=== PATIENT | male | born 1935 | race African-American/Black ===

== ENCOUNTER 2018-05-29 14:06 | Inpatient (IN) | payer MEDICARE, BC ==
[~2018-05-29] VITALS: Ht 172.7 cm; Wt 62.3 kg
[2018-05-29] MEDS ORDERED: Sodium Chloride 500ML 500 ML IV ONE (14:18)
--- NOTE | 2018-05-29 14:41 | Emergency Room Report ---
History of Present Illness General Chief Complaint: Syncope Source: Patient Present Illness HPI Patient presents after a syncopal episode Reports that he was going to answer the door when he passed out this was observed by his and paramedics summoned Currently the patient denies any chest pain denies any focal weakness Denies any headache denies any neck pain or photophobia On further questioning patient reports recent hospitalization at [facility] Where he had previous abdominal surgery patient is a fairly poor historian cannot give me the reason for that surgery Denies any change in medications reports taking medication for blood pressure history Allergies: Coded Allergies: No Known Allergies (Unverified , 05/29/18) Patient History Limited by: medical condition - Poor historian Past Medical History: see triage record Pertinent Family History: none Reviewed Nursing Documentation: PMH: Agreed; PSxH: Agreed Nursing Documentation-PMH Hx Hypertension: Yes Hx Cancer: Yes Review of Systems All Other Systems: limited - Other than the ones mentioned in the history of present illness all others are reviewed however they do stay limited due to the patient's mental status Physical Exam Vital Signs Date Time Temp Pulse Resp B/P (MAP) Pulse Ox O2 Delivery O2 Flow Rate FiO2 05/29/18 13:54 98.1 88 18 97/64 98 Sp02 EP Interpretation: reviewed, normal General Appearance: no apparent distress Head: normocephalic, atraumatic Eyes: bilateral eye PERRL, bilateral eye EOMI ENT: hearing grossly normal Neck: full range of motion, supple Respiratory: lungs clear Cardiovascular #1: regular rate, rhythm Gastrointestinal: other - Healing mid abdominal surgical scar no pulsatile masses Genitourinary: no CVA tenderness Musculoskeletal: normal inspection - No obvious focal deficit swelling in the right lower extremity Neurologic: alert, responsive Skin: other - Swelling Lymphatic: no adenopathy Medical Decision Making Diagnostic Impression: Primary Impression: Syncope ER Course Patient is a fairly complex patient with multiple differential to consideration including but not limited to cardiac cardiopulmonary and vascular emergencies Patient's blood work reveals elevated kidney function EKG is sinus rhythm Patient remains hemodynamically stable The ultrasound of the right lower extremity shows some anomaly at the femoral region will require further investigation and patient admitted for further care Labs Test 05/29/18 14:45 05/29/18 16:11 05/30/18 04:53 White Blood Count 5.4 K/UL (4.8-10.8) 4.9 K/UL (4.8-10.8) Red Blood Count 3.68 M/UL (4.70-6.10) 3.48 M/UL (4.70-6.10) Hemoglobin 10.3 G/DL (14.2-18.0) 9.8 G/DL (14.2-18.0) Hematocrit 33.3 % (42.0-52.0) 30.9 % (42.0-52.0) Mean Corpuscular Volume 90 FL (80-99) 89 FL (80-99) Mean Corpuscular Hemoglobin 28.0 PG (27.0-31.0) 28.1 PG (27.0-31.0) Mean Corpuscular Hemoglobin Concent 30.9 G/DL (32.0-36.0) 31.7 G/DL (32.0-36.0) Red Cell Distribution Width 15.3 % (11.6-14.8) 15.1 % (11.6-14.8) Platelet Count 200 K/UL (150-450) 210 K/UL (150-450) Mean Platelet Volume 7.2 FL (6.5-10.1) 7.7 FL (6.5-10.1) Neutrophils (%) (Auto) 71.8 % (45.0-75.0) 70.9 % (45.0-75.0) Lymphocytes (%) (Auto) 12.5 % (20.0-45.0) 15.7 % (20.0-45.0) Monocytes (%) (Auto) 11.6 % (1.0-10.0) 8.9 % (1.0-10.0) Eosinophils (%) (Auto) 3.0 % (0.0-3.0) 3.3 % (0.0-3.0) Basophils (%) (Auto) 1.1 % (0.0-2.0) 1.2 % (0.0-2.0) Sodium Level 141 MMOL/L (136-145) 146 MMOL/L (136-145) Potassium Level 3.6 MMOL/L (3.5-5.1) 3.3 MMOL/L (3.5-5.1) Chloride Level 112 MMOL/L (98-107) 114 MMOL/L (98-107) Carbon Dioxide Level 20 MMOL/L (21-32) 23 MMOL/L (21-32) Anion Gap 9 mmol/L (5-15) 9 mmol/L (5-15) Blood Urea Nitrogen 53 mg/dL (7-18) 45 mg/dL (7-18) Creatinine 2.3 MG/DL (0.55-1.30) 2.0 MG/DL (0.55-1.30) Estimat Glomerular Filtration Rate mL/min (>60) mL/min (>60) Glucose Level 73 MG/DL (74-106) 81 MG/DL (74-106) Calcium Level 9.1 MG/DL (8.5-10.1) 8.8 MG/DL (8.5-10.1) Total Bilirubin 0.3 MG/DL (0.2-1.0) Aspartate Amino Transf (AST/SGOT) 13 U/L (15-37) Alanine Aminotransferase (ALT/SGPT) 11 U/L (12-78) Alkaline Phosphatase 46 U/L (46-116) Total Creatine Kinase 64 U/L (26-308) Creatine Kinase MB 1.3 NG/ML (0.0-3.6) Creatine Kinase MB Relative Index 2.0 Troponin I 0.012 ng/mL (0.000-0.056) 0.019 ng/mL (0.000-0.056) Total Protein 6.9 G/DL (6.4-8.2) Albumin 2.9 G/DL (3.4-5.0) Globulin 4.0 g/dL Albumin/Globulin Ratio 0.7 (1.0-2.7) Lipase 267 U/L (73-393) Urine Color Pale yellow Urine Appearance Clear Urine pH 5 (4.5-8.0) Urine Specific [place] 1.010 (1.005-1.035) Urine Protein 1+ (NEGATIVE) Urine Glucose (UA) Negative (NEGATIVE) Urine Ketones Negative (NEGATIVE) Urine Blood Negative (NEGATIVE) Urine Nitrite Negative (NEGATIVE) Urine Bilirubin Negative (NEGATIVE) Urine Urobilinogen Normal MG/DL (0.0-1.0) Urine Leukocyte Esterase 1+ (NEGATIVE) Urine RBC 0-2 /HPF (0 - 0) Urine WBC 2-4 /HPF (0 - 0) Urine Squamous Epithelial Cells None /LPF (NONE/OCC) Urine Bacteria Few /HPF (NONE) Thyroid Stimulating Hormone (TSH) 3.209 uiU/mL (0.358-3.740) EKG Diagnostic Results Rate: normal Rhythm: NSR ST Segments: other - Nonspecific ST T-wave changes Rhythm Strip Diag. Results EP Interpretation: yes Rate: 67 Rhythm: NSR, no PVC's, no ectopy Chest X-Ray Diagnostic Results Chest X-Ray Diagnostic Results : Chest X-Ray Ordered: Yes # of Views/Limited/Complete: 1 View Indication: Chest Pain EP Interpretation: Yes Interpretation: no consolidation, no effusion, no pneumothorax Impression: No acute disease Electronically Signed by: Fanny Salomon DO CT/MRI/US Diagnostic Results CT/MRI/US Diagnostic Results : Impression venous ultrasound right lower extremityIMPRESSION: No evidence of deep venous thrombosis within the right lower extremity. 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 This may be confirmed on CTA. Last Vital Signs Date Time Temp Pulse Resp B/P (MAP) Pulse Ox O2 Delivery O2 Flow Rate FiO2 05/29/18 13:54 98.1 88 18 97/64 98 Status: improved Disposition: ADMITTED INPATIENT Condition: Serious Fanny Salomon DO May 29, 2018 14:41
[2018-05-29 15:08] VITALS: BP 133/70
--- NOTE | 2018-05-29 15:17 | Diagnostic Imaging Report ---
Indication: Chest pain Comparison: None A single view chest radiograph was obtained. Findings: No definite infiltrate or pulmonary vascular congestion identified. The heart is enlarged. The aorta is mildly enlarged consistent with atherosclerotic vascular disease. The bones are osteopenic. Impression: No acute disease
[2018-05-29] MEDS ORDERED: LOSARTAN POTASS25 MG ORAL (15:25)
[2018-05-29 15:27] LABS: BASOPHILS % (AUTO) 1.1 % (0.0-2.0); HEMATOCRIT 33.3 % (42.0-52.0); HEMOGLOBIN 10.3 G/DL (14.2-18.0); LYMPHOCYTES % (AUTO) 12.5 % (20.0-45.0); MEAN CORPUSCULAR VOLUME 90 FL (80-99); MONOCYTES % (AUTO) 11.6 % (1.0-10.0); NEUTROPHILS % (AUTO) 71.8 % (45.0-75.0); PLATELET COUNT 200 K/UL (150-450); RED BLOOD COUNT 3.68 M/UL (4.70-6.10); RED CELL DISTRIBUTION WIDTH 15.3 % (11.6-14.8); WHITE BLOOD COUNT 5.4 K/UL (4.8-10.8)
[2018-05-29 15:32] LABS: ANION GAP 9 mmol/L (5-15); BLOOD UREA NITROGEN 53 mg/dL (7-18); CALCIUM 9.1 MG/DL (8.5-10.1); CARBON DIOXIDE 20 MMOL/L (21-32); CHLORIDE 112 MMOL/L (98-107); CREATININE 2.3 MG/DL (0.55-1.30); POTASSIUM 3.6 MMOL/L (3.5-5.1); SODIUM 141 MMOL/L (136-145)
[2018-05-29 15:45] LABS: ALANINE AMINOTRANSFERASE 11 U/L (12-78); ALBUMIN 2.9 G/DL (3.4-5.0); ALBUMIN/GLOBULIN RATIO 0.7 (1.0-2.7); ALKALINE PHOSPHATASE 46 U/L (46-116); ASPARTATE AMINO TRANSFERASE 13 U/L (15-37); BILIRUBIN,TOTAL 0.3 MG/DL (0.2-1.0); CKMB 1.3 NG/ML (0.0-3.6); CREATINE KINASE 64 U/L (26-308)
[2018-05-29 16:24] LABS: APPEARANCE,URINE CLEAR; BILIRUBIN, URINE NEGATIVE (NEGATIVE); COLOR,URINE PALE YELLOW; GLUCOSE, URINE (UA) NEGATIVE (NEGATIVE); KETONES,URINE NEGATIVE (NEGATIVE); LEUKOCYTE ESTERASE ,URINE 1+ (NEGATIVE); NITRITE,URINE NEGATIVE (NEGATIVE); PH,URINE 5 (4.5-8.0); PROTEIN,URINE 1+ (NEGATIVE); UROBILINOGEN,URINE NORMAL MG/DL (0.0-1.0)
[2018-05-29 16:45] VITALS: BP 160/90
--- NOTE | 2018-05-29 16:55 | Diagnostic Imaging Report ---
Indication: Right lower extremity pain and swelling. Technique: Duplex Doppler imaging performed from the right common femoral vein to the popliteal vein. FINDINGS: Normal compressibility demonstrated from the common femoral vein to the popliteal vein. Respiratory phasicity and good augmentation demonstrated on waveform analysis. There is no evidence of thrombosis. In the area of the right common femoral artery there is a fusiform dilatation noted measuring 4.2 cm x 5 cm on transaxial images consistent with an aneurysm of the distal [employer]. Moderate mural thrombus noted within the aneurysm with turbulent flow. IMPRESSION: No evidence of deep venous thrombosis within the right lower extremity. 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 This may be confirmed on CTA.
[2018-05-29 17:25] VITALS: BP 125/85
[2018-05-29 17:35] VITALS: BP 148/97
[2018-05-29 20:00] VITALS: BP 137/87
[2018-05-29] MEDS: Heparin 5000 units/ml inj SUBQ SCH (20:57)
--- NOTE | 2018-05-29 22:15 | History and Physical Report ---
DATE OF ADMISSION: 05/29/2018 CHIEF COMPLAINT: Syncope. HISTORY OF PRESENT ILLNESS: The patient is an 82-year-old male. He has a history of ischemic cardiomyopathy, status post stent placement and hypertension. He has a history of abdominal aortic aneurysm. He has a recent history of gastric carcinoma status post gastrectomy a little over two weeks ago. The patient was doing well until the day of admission when he apparently went to answer his door and had a syncopal episode. He denies any palpitations. He denies any dizziness. Prior to the event, no chest pain and no shortness of breath. He was transferred to the emergency room here at [facility]. On evaluation here, the patient's vital signs were stable. EKG is currently pending. Laboratory did show white count of hemoglobin of 10, a BUN of 53, and creatinine of 2.3. Based upon review from the outside records at [facility], the patient's baseline creatinine on discharge was 1.9 with a BUN of 44. The patient's troponin was negative. In light of the syncopal event, he is now admitted for further evaluation and care. PAST MEDICAL HISTORY: Significant for, 1. History of gastric carcinoma status post gastrectomy. 2. History of AAA status post repair. 3. Ischemic cardiomyopathy status post stent placement. 4. History of hypertension. 5. Hyperlipidemia. 6. Anemia. 7. History of paroxysmal atrial fibrillation. 8. Anemia of chronic disease. PAST SURGICAL HISTORY: As above. CURRENT MEDICATIONS: The patient does not recall. Based upon review of records from [facility], the patient was discharged from there on atorvastatin 20 daily, azelastine eyedrops 1 drop twice a day, hydralazine 50 mg twice a day, losartan 100 mg daily, metoprolol 100 mg extended release daily, Plavix 75 daily, and torsemide 10 mg daily. ALLERGIES: The patient has no known drug allergies. FAMILY HISTORY: Noncontributory. SOCIAL HISTORY: There is no known history of tobacco, ethanol, or drugs. REVIEW OF SYSTEMS: GENERAL: No fevers or chills. HEENT: No headaches or visual changes. CARDIOPULMONARY: No chest pain or shortness of breath. GASTROINTESTINAL: No nausea or vomiting. GENITOURINARY: No urgency or frequency. MUSCULOSKELETAL: No joint pain or swelling. NEUROLOGIC: No evidence of seizures. PHYSICAL EXAMINATION: VITAL SIGNS: Temperature 97, pulse 84, respirations 20, and blood pressure 125/85. GENERAL: The patient is a well-developed thin male, in no apparent distress. He is awake, alert, and oriented x4. NECK: Supple. HEART: Regular rate and rhythm. LUNGS: Clear. ABDOMEN: Soft, nontender, and nondistended. EXTREMITIES: Without clubbing, cyanosis, or edema. LABORATORY DATA: Sodium 141, potassium 3.6, chloride 112, bicarb 20, BUN 53, and creatinine 2.3. LFTs were unremarkable. Troponin was 0.012. White count 5, hemoglobin 10, hematocrit 33, and platelets 200,000. UA showed 2 to 4 wbc's. Venous duplex is negative. ASSESSMENT: This is an 82-year-old male with a recent history of gastric carcinoma status post gastrectomy, history of hypertension, paroxysmal atrial fibrillation, and ischemic cardiomyopathy, admitted with a syncopal episode of unclear etiology. Suspect this might be related to dehydration. 1. Syncope. 2. Acute renal failure. 3. History of chronic kidney disease. 4. Dehydration. 5. History of atrial fibrillation. 6. Hypertension. 7. History of gastric carcinoma status post recent gastrectomy. PLAN: 1. IV hydration. 2. Cardiology consultation. 3. Monitor on telemetry. 4. Repeat troponin in the morning. 5. Monitor orthostatics. 6. Plan of care was discussed with the patient at the bedside. Feliberto Gerardo M.D. DR: SAYDA JOB#: [id number] CC:
[2018-05-30] VITALS: BP 144/77
--- NOTE | 2018-05-30 03:30 | Consultation ---
DATE OF CONSULTATION: 05/29/2018 CARDIOLOGY CONSULTATION CONSULTING PHYSICIAN: Eric Aponte M.D. REQUESTING PHYSICIAN: Feliberto Gerardo M.D. REASON FOR CONSULTATION: Syncope and hypotension. HISTORY OF PRESENT ILLNESS: This is an 82-year-old male, who is a very poor historian. He had a witnessed syncopal episode where he passed out after going to answer the front door. He was observed by his and paramedics were summoned. He had no antecedent symptoms and did not have any loss of bladder or bowel function or confusion following the event. The patient is unable to give any basic past medical history, so I have reviewed his hospital record from April 2018 at [facility] to obtain pertinent data. The patient was hospitalized at [facility] on 05/08/2018 and underwent gastrectomy for a localized gastric cancer. His hospital course was uncomplicated. PAST MEDICAL HISTORY: Includes AAA repair, coronary artery disease status post stent, hypertension, hyperlipidemia, chronic anemia, chronic kidney disease, and history of benign colon tumor. ALLERGIES: None known. MEDICATIONS: Prior to admission include hydralazine 50 b.i.d., Optivar eyedrops twice a day, Lipitor 20 daily, losartan 100 daily, Plavix 75 daily, aspirin 81 daily, Metoprolol Succ 100 daily, and torsemide 10 mg daily. FAMILY HISTORY: Noncontributory. SOCIAL HISTORY: Negative for smoking, alcohol, or substance abuse. REVIEW OF SYSTEMS: Not reliably obtained from the patient. All pertinent data from extensive review of records 45 minutes as outlined above. PHYSICAL EXAMINATION: VITAL SIGNS: Afebrile. Blood pressure 94/54, pulse 88, and respirations 18. HEENT: Normocephalic and atraumatic. Conjunctivae are pink. Oropharynx clear. NECK: Supple. Jugular venous pressure normal. LUNGS: Clear. CARDIAC: Regular rhythm and rate. Normal S1 and S2. There is no murmur, rub, or gallop. ABDOMEN: Soft and nontender. Surgical scars are healing without complications. EXTREMITIES: Without clubbing, cyanosis, or edema. NEUROLOGIC: Nonfocal. LABORATORY DATA: Reviewed. IMPRESSION: 1. Orthostatic syncope likely precipitated by medications. 2. Recent gastric cancer resection. 3. Hypertensive heart disease. 4. History of AAA repair. 5. Coronary artery disease with history of coronary stent, and unstable angina. 6. Chronic kidney disease with possible acute component due to diuretics. Recommend cardiac monitoring, hydration, hold all cardiovascular medications, especially diuretics. Continue anti-platelet therapy. PLAN: 1. Monitor volume status closely with IV fluid hydration. 2. Trend natriuretic peptide assay. 3. Serial troponin levels. Eric Aponte M.D. DR: ERYN JOB#: [id number] CC: KEMAR
[2018-05-30 06:17] LABS: BASOPHILS % (AUTO) 1.2 % (0.0-2.0); EOSINOPHILS % (AUTO) 3.3 % (0.0-3.0); HEMATOCRIT 30.9 % (42.0-52.0); HEMOGLOBIN 9.8 G/DL (14.2-18.0); LYMPHOCYTES % (AUTO) 15.7 % (20.0-45.0); MEAN CORPUSCULAR VOLUME 89 FL (80-99); MONOCYTES % (AUTO) 8.9 % (1.0-10.0); NEUTROPHILS % (AUTO) 70.9 % (45.0-75.0); PLATELET COUNT 210 K/UL (150-450); RED BLOOD COUNT 3.48 M/UL (4.70-6.10); RED CELL DISTRIBUTION WIDTH 15.1 % (11.6-14.8); WHITE BLOOD COUNT 4.9 K/UL (4.8-10.8)
[2018-05-30 06:49] LABS: ANION GAP 9 mmol/L (5-15); BLOOD UREA NITROGEN 45 mg/dL (7-18); CALCIUM 8.8 MG/DL (8.5-10.1); CARBON DIOXIDE 23 MMOL/L (21-32); CHLORIDE 114 MMOL/L (98-107); POTASSIUM 3.3 MMOL/L (3.5-5.1); SODIUM 146 MMOL/L (136-145)
[2018-05-30 08:00] VITALS: BP 134/74
[2018-05-30] MEDS: Heparin 5000 units/ml inj SUBQ SCH ×2 (08:50→20:46)
[2018-05-30] MEDS: NS w/KCl 20mEq 1,000 ML IV SCH ×2 (09:24→20:44)
--- NOTE | 2018-05-30 09:26 | General Progress Note ---
Assessment/Plan Problem List: (1) Gastric cancer ICD Codes: C16.9 - Malignant neoplasm of stomach, unspecified SNOMED: 987176788 (2) Afib ICD Codes: I48.91 - Unspecified atrial fibrillation SNOMED: 57888583 (3) HTN (hypertension) ICD Codes: I10 - Essential (primary) hypertension SNOMED: 34821559 (4) CKD (chronic kidney disease) ICD Codes: N18.9 - Chronic kidney disease, unspecified SNOMED: 382605623 (5) Syncope ICD Codes: R55 - Syncope and collapse SNOMED: 236093811 Status: stable Assessment/Plan cont ivf with k echo carotids pt/ot Subjective ROS Limited/Unobtainable: No Constitutional: Reports: malaise, weakness HEENT: Reports: no symptoms Cardiovascular: Reports: no symptoms Respiratory: Reports: no symptoms Gastrointestinal/Abdominal: Reports: no symptoms Genitourinary: Reports: no symptoms Neurologic/Psychiatric: Reports: no symptoms Endocrine: Reports: no symptoms Hematologic/Lymphatic: Reports: no symptoms Allergies: Coded Allergies: No Known Allergies (Unverified , 05/29/18) All Systems: reviewed and negative except above Subjective no new complaints. no dizziness. no cp/sob. trop neg. low k on labs Objective Last 24 Hour Vital Signs Date Time Temp Pulse Resp B/P (MAP) Pulse Ox O2 Delivery O2 Flow Rate FiO2 05/30/18 08:00 98.6 69 18 134/74 (94) 100 05/30/18 04:00 56 05/30/18 00:00 51 05/30/18 00:00 98.9 53 22 144/77 (99) 96 05/29/18 21:00 Room Air 05/29/18 20:00 73 05/29/18 20:00 98.6 71 18 137/87 (104) 96 05/29/18 18:07 Room Air 05/29/18 17:50 97.7 84 20 125/85 100 05/29/18 17:35 97.7 69 18 148/97 (114) 05/29/18 17:25 98.0 84 20 125/85 100 05/29/18 16:45 98.1 78 18 160/90 100 05/29/18 15:08 98.1 88 16 133/70 100 05/29/18 13:54 98.1 88 18 97/64 98 Intake and Output 05/29/18 05/30/18 19:00 07:00 Intake Total 100 ml Output Total 0 ml 350 ml Balance 0 ml -250 ml Intake Oral 100 ml Output Urine Total 0 ml 350 ml # Voids 1 # Bowel Movements 1 Laboratory Tests 05/29/18 14:45: White Blood Count 5.4, Red Blood Count 3.68L, Hemoglobin 10.3L, Hematocrit 33.3L , Mean Corpuscular Volume 90, Mean Corpuscular Hemoglobin 28.0, Mean Corpuscular Hemoglobin Concent 30.9L, Red Cell Distribution Width 15.3H, Platelet Count 200, Mean Platelet Volume 7.2, Neutrophils (%) (Auto) 71.8, Lymphocytes (%) (Auto) 12.5L, Monocytes (%) (Auto) 11.6H, Eosinophils (%) (Auto ) 3.0, Basophils (%) (Auto) 1.1, Sodium Level 141, Potassium Level 3.6, Chloride Level 112H, Carbon Dioxide Level 20L, Anion Gap 9, Blood Urea Nitrogen 53H, Creatinine 2.3H, Estimat Glomerular Filtration Rate , Glucose Level 73L, Calcium Level 9.1, Total Bilirubin 0.3, Aspartate Amino Transf (AST/SGOT) 13L, Alanine Aminotransferase (ALT/SGPT) 11L, Alkaline Phosphatase 46, Total Creatine Kinase 64, Creatine Kinase MB 1.3, Creatine Kinase MB Relative Index 2.0, Troponin I 0.012, Total Protein 6.9, Albumin 2.9L, Globulin 4.0, Albumin/ Globulin Ratio 0.7L, Lipase 267 05/29/18 16:11: Urine Color Pale yellow, Urine Appearance Clear, Urine pH 5, Urine Specific [place] 1.010, Urine Protein 1+H, Urine Glucose (UA) Negative, Urine Ketones Negative, Urine Blood Negative, Urine Nitrite Negative, Urine Bilirubin Negative , Urine Urobilinogen Normal, Urine Leukocyte Esterase 1+H, Urine RBC 0-2H, Urine WBC 2-4, Urine Squamous Epithelial Cells None, Urine Bacteria Few 05/30/18 04:53: White Blood Count 4.9, Red Blood Count 3.48L, Hemoglobin 9.8L, Hematocrit 30.9L , Mean Corpuscular Volume 89, Mean Corpuscular Hemoglobin 28.1, Mean Corpuscular Hemoglobin Concent 31.7L, Red Cell Distribution Width 15.1H, Platelet Count 210, Mean Platelet Volume 7.7, Neutrophils (%) (Auto) 70.9, Lymphocytes (%) (Auto) 15.7L, Monocytes (%) (Auto) 8.9, Eosinophils (%) (Auto) 3.3H, Basophils (%) (Auto) 1.2, Sodium Level 146H, Potassium Level 3.3L, Chloride Level 114H, Carbon Dioxide Level 23, Anion Gap 9, Blood Urea Nitrogen 45H, Creatinine 2.0H, Estimat Glomerular Filtration Rate , Glucose Level 81, Calcium Level 8.8, Troponin I 0.019, Thyroid Stimulating Hormone (TSH) 3.209, Cortisol AM Sample [Pending] Height (Feet): 5 Height (Inches): 8.00 Weight (Pounds): 130 General Appearance: WD/WN, alert Neck: supple Cardiovascular: normal peripheral pulses, normal rate, regular rhythm Respiratory/Chest: chest wall non-tender, lungs clear, normal breath sounds, no respiratory distress Edema: no edema noted Arm (L), no edema noted Arm (R), no edema noted Leg (L), no edema noted Leg (R), no edema noted Pedal (L), no edema noted Pedal (R), no edema noted Generalized Neurologic: analyst sales II-XII grossly normal, alert, oriented x 3, responsive Feliberto Gerardo MD May 30, 2018 09:26
[2018-05-30 12:09] VITALS: BP 157/90
--- NOTE | 2018-05-30 15:06 | Cardiology Report ---
APPROVED REPORT EXAM: Two-dimensional and M-mode echocardiogram with Doppler and color Doppler. INDICATION CAD M-Mode DIMENSIONS IVSd1.9 (0.7-1.1cm)Left Atrium (MM)5.3 (1.6-4.0cm) LVDd3.2 (3.5-5.6cm)Aortic Root2.7 (2.0-3.7cm) IVSs2.0 cm LVDs2.2 (2.5-4.0cm) PWs2.3 cm Technically difficult study due to poor acoustical windows. Normal left ventricular chamber size, systolic function and wall motion to extent visualized. Left ventricular ejection fraction grossly estimated to be 60-65 %. Study quality precludes accurate assessment of regional wall motion. Moderate left ventricular hypertrophy. Small posterior pericardial effusion. Left atrial size at upper limits of normal. Right cardiac chamber sizes are within normal limits. Focal aortic valve sclerosis with mildly reduced cusp excursion. Thickened mitral valve leaflets with normal excursion. Mitral annulus and aortic root calcification. Pulmonic valve not well visualized. Normal tricuspid valve structure. IVC measured at 2.1 cm without physiologic collapse suggestive of increased RA pressure. A color flow and spectral Doppler study was performed and revealed: Mild aortic regurgitation. Peak aortic valve gradient of 13 mm Hg and a mean of 6 mmHg. Mild mitral regurgitation. Mitral diastolic velocities suggest reduced left ventricular relaxation c/w mild LV diastolic dysfunction (Grade I). Mild tricuspid regurgitation. Tricuspid systolic velocities suggests peak right ventricular systolic pressure of 38 mmHg, consistent with mild pulmonary hypertension.
--- NOTE | 2018-05-30 15:29 | Cardiology Report ---
APPROVED REPORT EKG Measurement Heart [id number] Normal sinus rhythm Possible Left atrial enlargement Prolonged QT Abnormal ECG
[2018-05-30 16:00] VITALS: BP 128/79
[2018-05-30 20:00] VITALS: BP 144/87
[2018-05-31] VITALS: BP 142/82
[2018-05-31] MEDS: D5 1/2NS w/KCl 20mEq 1,000 ML IV SCH ×2 (00:30→12:57)
--- NOTE | 2018-05-31 01:15 | Progress Note ---
DATE: 05/30/2018 CARDIOLOGY PROGRESS NOTE SUBJECTIVE: The patient is awake, alert, no loss of consciousness. No dizziness. No confusion. The patient is a very poor historian. He thinks he may have passed out prior to yesterday's event. The patient now notes he takes a lot of blood pressure pills and does not know why he needs so many. Presently, he is off all his antihypertensives and has been hydrated with IV fluids. OBJECTIVE: VITAL SIGNS: Blood pressure 128/79 to 157/90, heart rate 58-76, respiratory rate 18, afebrile. LUNGS: Clear. CARDIAC: Regular. Normal S1, S2 with a fourth heart sound. ABDOMEN: Soft. Surgical scar healing. No secondary infection. EXTREMITIES: No edema. LABORATORY DATA: White count 4.9, hemoglobin 9.8. Sodium 146, potassium 3.3, chloride 114, BUN 45, creatinine 2. IMPRESSION: 1. Suspected orthostatic syncope due to medications. 2. Acute on chronic renal failure, improved with hydration. 3. Dehydration. 4. Hypernatremia. 5. Hypokalemia. 6. Hyperchloremia. 7. Recent gastric cancer resection with report suggesting localized disease. 8. Hypertensive heart disease. PLAN: 1. Hypotonic hydration. 2. Potassium replacement. 3. Stepwise resumption of some antihypertensives. 4. No role for diuretics. Eric Aponte M.D. DR: Whit JOB#: [id number] CC:
[2018-05-31 04:00] VITALS: BP 153/85
[2018-05-31 08:15] VITALS: BP 177/98
--- NOTE | 2018-05-31 08:15 | Physician Query ---
--------- THIS DOCUMENT IS A PERMANENT PART OF THE MEDICAL RECORD --------- PLEASE COMPLETE THE DOCUMENT BEFORE SIGNING Dear Dr. Gerardo Date: 05/31/2018 Tongue Carrier/CDS Name: Malika Cortez Tongue Carrier / CDS Phone # [phone] Exercise your independent professional judgment when responding to query. Question asked do not imply a particular answer is desired/expected Clinical Documentation States: "Syncope" documented in H&P and progress notes. Patient also has ROSAURA. Clinical Findings Show: Creatinine: 2.3, 2.0. BUN: 53, 45. Rx: IV hydration. Can you please specify the cause for Syncope? [] Autonomic Imbalance [] Autonomic Dysfunction [x] Orthostatic Hypotension [] Psychogenic [x] Shock [x] Dehydration [] Dialysis Disequilibrium Syndrome [] Heat [] Other: [] Unable to determine Condition Present on Admission: [ ] Yes [ ] No [ ] Clinically Undeterminable Please also document in your Progress Notes and/or Discharge Summary and indicate if the condition was present on admission. Sy REINOSO
[2018-05-31] MEDS: Heparin 5000 units/ml inj SUBQ SCH (08:16)
[2018-05-31] MEDS ORDERED: Losartan 50mg tab ORAL SCH (09:00)
[2018-05-31] MEDS ORDERED: Aspirin Baby 81mg ORAL SCH (09:00)
[2018-05-31] MEDS ORDERED: Metoprolol Succinate XL 50mg tab ORAL SCH (09:00)
[2018-05-31 09:39] LABS: ALANINE AMINOTRANSFERASE 12 U/L (12-78); ALBUMIN 2.6 G/DL (3.4-5.0); ALBUMIN/GLOBULIN RATIO 0.8 (1.0-2.7); ALKALINE PHOSPHATASE 41 U/L (46-116); ANION GAP 11 mmol/L (5-15); ASPARTATE AMINO TRANSFERASE 13 U/L (15-37); BILIRUBIN,TOTAL 0.4 MG/DL (0.2-1.0); BLOOD UREA NITROGEN 39 mg/dL (7-18); CALCIUM 8.7 MG/DL (8.5-10.1); CARBON DIOXIDE 20 MMOL/L (21-32); CHLORIDE 116 MMOL/L (98-107); CREATININE 1.7 MG/DL (0.55-1.30); POTASSIUM 3.9 MMOL/L (3.5-5.1); SODIUM 147 MMOL/L (136-145)
[2018-05-31 12:13] VITALS: BP 177/100
[2018-05-31] MEDS ORDERED: HydrALAZINE 25mg tab ORAL SCH (12:32)
[2018-05-31 14:31] VITALS: BP 138/99
[2018-05-31] MEDS ORDERED: ASPIR 8181 MG ORAL (14:37)
[2018-05-31] MEDS ORDERED: LOSARTAN POTAS100 MG ORAL (14:37)
[2018-05-31] MEDS ORDERED: METOPROLOL SUCC50 MG ORAL (14:37)
--- NOTE | 2018-06-01 04:00 | Progress Note ---
DATE: 05/31/2018 CARDIOLOGY PROGRESS NOTE SUBJECTIVE: The patient is without dizziness. No loss of consciousness. Monitored rhythm sinus and sinus bradycardia. No pauses. OBJECTIVE: VITAL SIGNS: Blood pressure trending up to 177/100. LUNGS: Clear. CARDIAC: Regular. Normal S1, S2 with a fourth heart sound. ABDOMEN: Soft. EXTREMITIES: No edema. IMPRESSION: 1. Orthostatic syncope. 2. Hypertensive heart disease. 3. Recent gastrectomy for gastric cancer. PLAN: 1. Advance antihypertensives. 2. Avoid diuretics. 3. Monitor orthostatics. 4. Avoid tight blood pressure control upon discharge with monitor as an outpatient and titrate regimen slowly. 5. Discontinue intravenous fluids. Eric Aponte M.D. DR: MATTHEW JOB#: [id number] CC:
--- NOTE | 2018-06-01 11:05 | Discharge Summary ---
Discharge Summary Discharge Summary _ DATE OF ADMISSION: 05/29/2018 DATE OF DISCHARGE: 05/31/2018 DISCHARGED BY: Dr. Feliberto Gerardo CONSULTANTS: Dr. Eric Jackson BRIEF HOSPITAL COURSE: Patient is an 82-year-old male. He has history of ischemic cardiomyopathy, status post stent placement and hypertension. He has history of abdominal aortic aneurysm. He had recent history of gastric carcinoma, status post gastrectomy a little over two weeks ago. He was doing well until day of admission, when he apparently went to answer his door and had a syncopal episode. He denied any palpitations. Denied any dizziness. Prior to the event , there was no chest pain no shortness of breath. He was transferred to [facility]. On evaluation at the ED, vital signs were stable. Blood work did not show any leukocytosis, hemoglobin was 10, hematocrit 33. Electrolytes were normal. Creatinine was elevated to 2.3, BUN 53. Based upon review from outside records at [facility], baseline creatinine on discharge was 1.9 with BUN of 44. Troponin was slightly elevated 0.012. EKG showed normal sinus rhythm with nonspecific ST to T wave changes. Chest x-ray showed no acute disease. Duplex of the right lower extremity was negative for DVT. 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 In light of syncopal episode, he was admitted for further care and evaluation. He was given IV hydration. He was placed on night monitor. Orthostatics monitored. Kidney function was monitored. Serial troponins were negative. He was given antiplatelet therapy. All cardiac medications were placed on hold. Echocardiogram done showed ejection fraction of 60-65%, normal left ventricular size, function and wall shunt. There was mild aortic regurgitation, mild mitral regurgitation, mild tricuspid regurgitation and mild pulmonary hypertension. Carotid duplex showed mild plaque in the right ICA/ECA and left CCA/ICA/ECA, per preliminary report. Blood pressure was monitored. IV fluid was eventually discontinued. He was eventually restarted on antihypertensives. He was given PT. He was eventually discharged home. FINAL DIAGNOSES: Orthostatic syncope Presents of heart disease Recent gastrectomy for gastric cancer Hypertensive heart disease DISPOSITION: Patient was discharged home. DISCHARGE MEDICATIONS: Refer to Discharge Medication List. DISCHARGE INSTRUCTIONS: Follow-up in a week. I have been assigned to dictate discharge summary on this account, and I was not involved in the patient's management. Edith Morris NP Jun 01, 2018 11:05
== END 2018-05-31 15:52 | disposition home or self-care (01) | DRG 312 ==
LOC: EDBD 14:06 → EMR 14:47 → 2E 15:35 → EDBEDREQ 15:43
DX: I95.1 Orthostatic hypotension (principal); N17.9 Acute kidney failure, unspecified; R57.9 Shock, unspecified; I11.9 Hypertensive heart disease without heart failure; Z85.028 Personal history of other malignant neoplasm of stomach; Z90.3 Acquired absence of stomach [part of]; I25.5 Ischemic cardiomyopathy; I25.10 Atherosclerotic heart disease of native coronary artery without angina pectoris; Z95.5 Presence of coronary angioplasty implant and graft; D63.8 Anemia in other chronic diseases classified elsewhere; I48.0 Paroxysmal atrial fibrillation; E78.5 Hyperlipidemia, unspecified
CPT/HCPCS: 36415; 71045; 80048; 80053; 81003; 82533; 82550; 82553; 83690; 83735; 84443; 84484; 85025; 93005; 93306; 93880; 93971; 96361; 96374; 99285